=== PATIENT | male | born 1950 | race Native Hawaiian/Other Pacific Islander ===

== ENCOUNTER 2016-12-15 08:04 | Day surgery (SDC) | payer OTHER | END 2016-12-15 09:55 | disposition home or self-care (01) | LOC: OR 08:04 | PROC: 08RK3JZ Replacement of Left Lens with Synthetic Substitute, Percutaneous Approach (ICD-10-PCS; principal; 2016-12-15) | DX: H25.812 Combined forms of age-related cataract, left eye (principal) | CPT/HCPCS: 66984; J0171; V2632 ==

== ENCOUNTER 2017-02-02 08:36 | Day surgery (SDC) | payer OTHER | END 2017-02-02 11:21 | disposition home or self-care (01) | LOC: OR 08:36 | PROC: 08RJ3JZ Replacement of Right Lens with Synthetic Substitute, Percutaneous Approach (ICD-10-PCS; principal; 2017-02-02) | DX: H25.811 Combined forms of age-related cataract, right eye (principal) | CPT/HCPCS: 66984; J0171; V2632 ==

== ENCOUNTER 2018-08-25 17:29 | Emergency (ER) | payer OTHER ==
[~2018-08-25] VITALS: Ht 177.8 cm; Wt 104.3 kg
[2018-08-25] MEDS ORDERED: METFORMIN ER1000 MG PO (17:35)
[2018-08-25] MEDS ORDERED: FURO40TA93 PO (17:35)
[2018-08-25] MEDS ORDERED: PRINIVIL10 MG PO (17:35)
[2018-08-25] MEDS ORDERED: CARV6.25 PO (17:36)
[2018-08-25] MEDS ORDERED: ALEVE220 M1 PO (17:37)
[2018-08-25] MEDS ORDERED: ZOCOR80 MG PO (17:38)
[2018-08-25] MEDS ORDERED: TAMS0.4C PO (17:38)
[2018-08-25] MEDS ORDERED: ASPIRIN ADULT L81 MG PO (17:39)
[2018-08-25] MEDS ORDERED: AFRIN0.05 % NAS (17:41)
[2018-08-25 18:21] LABS: PLATELET COUNT 152 K/uL (142-355)
[2018-08-25 18:32] LABS: POTASSIUM 4.2 mmol/L (3.6-5.2)
[2018-08-25 20:13] VITALS: BP 156/74; TEMP 97.8
== END 2018-08-25 20:50 | disposition short-term general hospital (02) ==
LOC: ED 17:29
PROVIDERS: Emergency Medicine
DX: I50.9 Heart failure, unspecified (principal); I21.4 Non-ST elevation (NSTEMI) myocardial infarction; J81.1 Chronic pulmonary edema; J90 Pleural effusion, not elsewhere classified
CPT/HCPCS: 36415; 36600; 43754; 51702; 80053; 82550; 82553; 82805; 83880; 84484; 85027; 85379; 93005; 94664; 96365; 96374; 99285; J1940